=== PATIENT | female | born 1980 | race Caucasian/White ===

== ENCOUNTER 2021-03-04 17:50 | Emergency (ER) | payer OTHER ==
[~2021-03-04 17:50] MED LIST: PERCOCET 10-321 EACH PO
== END 2021-03-04 22:39 | disposition home or self-care (01) ==
LOC: ER1 17:50
DX: U07.1 COVID-19 (principal); M06.9 Rheumatoid arthritis, unspecified; Z23 Encounter for immunization; Z88.8 Allergy status to other drugs, medicaments and biological substances
CPT/HCPCS: 99283; M0243